=== PATIENT | male | born 1980 | race Caucasian/White ===

== ENCOUNTER 2021-10-27 20:57 | Emergency (ER) | payer MEDICAID, SELFPAY ==
[2021-10-27 21:06] VITALS: BP 135/97; PULSE 86; RESP 20; TEMP 37.3; O2SAT 97
--- NOTE | 2021-10-27 21:24 | US_ITS ---
Final Report Patient: BEVERLEY RAYMOND Facility:?[facility] Patient ID:?[id number] Site Patient ID:?[id number]. Site :?[id number] Study:?US Testicle -10/27/2021 10:49:43 PM Ordering Physician:Hina Sharif Final Report: HISTORY: Left testicular pain TECHNIQUE: Duplex/color Doppler ultrasound evaluation of the scrotum was performed. COMPARISON: None. FINDINGS: The right testis measures 4.6 x 3.7 x 3.6 cm. The right testis and epididymis are normal in size, configuration, and echogenicity. There is no evidence of intra- or extratesticular mass. Small volume of mildly complex appearing fluid in the right hemiscrotum. The left testis measures 5.4 x 3.1 x 4.7 cm. The left testis and epididymis are normal in size, configuration, and echogenicity. There is no evidence of intra- or extratesticular mass. Small to moderate volume of mildly complex appearing fluid in the left hemiscrotum. Color Doppler flow is demonstrated within both testes and epididymides. Normal- appearing arterial and venous waveforms are observed bilaterally. IMPRESSION: 1. Testicles are symmetric in size and blood flow. Epididymal heads appear similar vascularity. 2. Small volume of mildly complex fluid in the right hemiscrotum and small to moderate volume abnormally complex fluid in the left hemiscrotum. Appearance is favored to represent hydrocele, appearance would be atypical for hematoma. Infection is possible though less likely in the absence of evidence of orchitis or epididymitis. Dictated by Pasha Shen MD @ 10/27/2021 11:24:03 PM (Electronic Signature)
--- NOTE | 2021-10-27 21:40 | ED.MALEGU ---
HPI - Male Genitourinary General Time Seen by Provider: 21:40 Chief complaint: Unspecified Complaint, Adult Stated complaint: Testicular pain and severe anxiety Time Seen by Provider: 10/27/21 21:21 History of Present Illness HPI Narrative: Patient is a 41-year-old gentleman comes in today with left-sided testicular pain. Pain is in the posterior testicle. He has no urinary discharge or dysuria. He has had no abdominal pain no fevers no chills no night sweats. He has had no similar symptoms in no recent major change in sex partners. Patient admits to severe anxiety as well. Related Data Home Medications Medication Instructions Recorded Confirmed No Known Home Medications 10/27/21 10/27/21 Allergies Allergy/AdvReac Type Severity Reaction Status Date / Time No Known Drug Allergies Allergy Verified 10/27/21 21:12 Review of Systems Status of ROS: Reports: 10 or more systems reviewed and unremarkable except as noted in History and below [facility] Medical History (Updated 10/27/21 @ 23:19 by Kole Espitia MD) No significant past medical history Surgical History (Updated 10/27/21 @ 21:50 by Michelle Irby RN) No significant past surgical history Social History Smoking Status: Current every day smoker What tobacco products do you use: cigarettes Do you use any of these nicotine containing products: None Second hand tobacco smoke exposure: Yes How often do you have a drink containing alcohol: 2-3 times a week How often do you have six or more drinks on one occasion: Weekly AUDIT-C Alcohol total score: 6 Non-prescribed substance use: denies use service: No Exam Narrative: Exam Narrative: EXAM GENERAL: Patient appears comfortable and well. EYES: No scleral icterus. ENT: Tympanic membranes and oropharynx normal. THYROID: no thyroid nodules or thyromegaly. LYMPH: No supraclavicular or cervical lymphadenopathy. SKIN: Visible skin seen during exam normal or with benign process only. EXT: No dependent lower extremity pedal edema. HEART: Regular rate and rhythm with no murmurs, rubs, or gallops. LUNGS: Clear to auscultation bilaterally with no crackles or wheezes. ABD: Soft, non tender, non distended. Genitourinary: Patient is a normal circumcised male with normal testicular exam. No pain to palpation no swelling noted. PSYCH: Good eye contact, speech is not pressured. Const: Vital Signs, click to edit/add: Vital Signs - 24 hr 10/27/21 21:06 Temperature 99.1 F Pulse Rate [Right Pulse Oximeter] 86 Respiratory Rate 20 Blood Pressure [Le ft Upper Arm] 135/97 H Pulse Oximetry 97 Course Course Hospital Course: Ultrasound of the scrotum shows evidence of a mild hydrocele. Good blood flow noted no evidence of orchitis or epididymitis. Reevaluation(s) Reevaluation #1: He patient feeling better. He is complaining of severe anxiety as well. Vital Signs Vital signs: Initial Vital Signs Temperature 99.1 F 10/27/21 21:06 Temperature Source Temporal Artery Scan 10/27/21 21:06 Pulse Rate 86 10/27/21 21:06 Pulse Rhythm 10/27/21 21:06 Pulse Strength 3+ Normal 10/27/21 21:06 Respiratory Rate 20 10/27/21 21:06 Blood Pressure 135/97 H 10/27/21 21:06 Blood Pressure Mean 109 10/27/21 21:06 Blood Pressure Position Sitting 10/27/21 21:06 Pulse Oximetry 97 10/27/21 21:06 Oxygen Delivery Method 10/27/21 21:06 Vital Signs Temperature 99.1 F 10/27/21 21:06 Pulse Rate 86 10/27/21 21:06 Respiratory Rate 20 10/27/21 21:06 Blood Pressure 135/97 H 10/27/21 21:06 Pulse Oximetry 97 10/27/21 21:06 Temperature 99.1 F 10/27/21 21:06 Pulse Rate 86 10/27/21 21:06 Respiratory Rate 20 10/27/21 21:06 Blood Pressure 135/97 H 10/27/21 21:06 Pulse Oximetry 97 10/27/21 21:06 Discharge Plan Discharge Clinical Impression: Chronic hydrocele Patient Disposition: Home, Self-Care Condition: Stable Instructions: Hydrocele (ED) Activity Level: No Restrictions Discharge Diet: Regular Prescriptions: No Action No Known Home Medications 0RF Follow Up/Referrals: Provider,Not a Local [Primary Care Provider] - Stand Alone Forms: [employer] Info Instructions
--- NOTE | 2021-10-27 23:08 | ED.NURSE ---
Patient came out of room requesting help with anxiety. Walked him back to room and asked more questions. He reports wanting a medication though unsure which may help. Told patient that MD will speak with him about this and MD updated as well.
[2021-10-27 23:48] LABS: Chlamydia DNA Amplified* NOT DETECTED (No Detected); GC DNA Amplified* NOT DETECTED (No Detected)
== END 2021-10-27 23:44 | disposition home or self-care (01) ==
PROVIDERS: Emergency Provider Internal Medicine
DX: N43.3 Hydrocele, unspecified (principal)
CPT/HCPCS: 76870; 87491; 87591; 93976; 99283

== ENCOUNTER 2022-11-06 00:29 | Emergency (ER) | payer MEDICAID, SELFPAY ==
[2022-11-06 00:35] VITALS: BP 145/98; PULSE 67; RESP 16; TEMP 37.1; O2SAT 97
--- NOTE | 2022-11-06 00:53 | ED.EYEPROB ---
HPI - Eye Problem General Chief complaint: Eye Problems Stated complaint: has something in his left eye Time Seen by Provider: 11/06/22 00:33 History of Present Illness HPI Narrative: Patient presents with 6 hour history of a josé of metal in his left. The metal is clearly visible in the inferior aspect of the cornea. Patient has normal visual acuity. He has no chronic medical issues and is up-to-date on his tetanus shot. He otherwise feels well has no major complaints or concerns minimal old tearing. Patient has no redness no warmth no para ocular findings. Patient is otherwise feeling well. He just has a significant foreign body sensation. Related Data Patient tetanus UTD: Yes Home Medications Medication Instructions Recorded Confirmed No Known Home Medications 10/27/21 11/06/22 Allergies Allergy/AdvReac Type Severity Reaction Status Date / Time No Known Drug Allergies Allergy Verified 11/06/22 00:35 [facility] Medical History No significant past medical history Surgical History No significant past surgical history Social History Smoking Status: Current every day smoker What tobacco products do you use: cigarettes Do you use any of these nicotine containing products: None Second hand tobacco smoke exposure: Yes How often do you have a drink containing alcohol: 2-3 times a week How often do you have six or more drinks on one occasion: Weekly AUDIT-C Alcohol total score: 6 Non-prescribed substance use: denies use service: No Exam Narrative: Exam Narrative: EXAM GENERAL: Patient appears comfortable and well. EYES: No scleral icterus. ENT: Left eye shows normal sclera with a foreign body in the inferior aspect of the cornea. THYROID: no thyroid nodules or thyromegaly. LYMPH: No supraclavicular or cervical lymphadenopathy. SKIN: Visible skin seen during exam normal or with benign process only. PSYCH: Good eye contact, speech is not pressured. Const: Vital Signs, click to edit/add: Vital Signs - 24 hr 11/06/22 00:35 Temperature 98.8 F Pulse Rate [Pulse Oximeter] 67 Respiratory Rate 16 Blood Pressure [Ri ght Upper Arm] 145/98 H Pulse Oximetry 97 Oxygen Delivery Me thod Room Air Course Course Hospital Course: I did place tetracaine drops in left eye with resolution of his symptoms. I then attempted to use a swab to remove the foreign body material this was unsuccessful. Was able to remove the foreign body with a ocular drill using normal sterile technique. Vital Signs Vital signs: Initial Vital Signs Temperature 98.8 F 11/06/22 00:35 Temperature Source Temporal Artery Scan 11/06/22 00:35 Pulse Rate 67 11/06/22 00:35 Pulse Strength 3+ Normal 11/06/22 00:35 Respiratory Rate 16 11/06/22 00:35 Blood Pressure 145/98 H 11/06/22 00:35 Blood Pressure Mean 113 H 11/06/22 00:35 Pulse Oximetry 97 11/06/22 00:35 Oxygen Delivery Method Room Air 11/06/22 00:35 Vital Signs Temperature 98.8 F 11/06/22 00:35 Pulse Rate 67 11/06/22 00:35 Respiratory Rate 16 11/06/22 00:35 Blood Pressure 145/98 H 11/06/22 00:35 Pulse Oximetry 97 11/06/22 00:35 Oxygen Delivery Method Room Air 11/06/22 00:35 Temperature 98.8 F 11/06/22 00:35 Pulse Rate 67 11/06/22 00:35 Respiratory Rate 16 11/06/22 00:35 Blood Pressure 145/98 H 11/06/22 00:35 Pulse Oximetry 97 11/06/22 00:35 Oxygen Delivery Method Room Air 11/06/22 00:35 MDM - Eye Problem MDM Narrative Medical decision making narrative: Patient presents with a foreign body in his left eye. This was anesthetized and the foreign body was removed. Patient tolerated procedure well and will follow-up with his eye doctor on a p.r.n. basis. Differential Diagnosis Differential diagnosis: Likely corneal abrasion, conjunctivitis, acute iritis, hyphema, periorbital cellulitis, subconjunctival hemorrhage and ruptured globe Discharge Plan Discharge Clinical Impression: Acute foreign body of left cornea Patient Disposition: Home, Self-Care Condition: Stable Instructions: Eye Foreign Body (ED) Additional Instructions: Hydrating eyedrops as needed Follow-up with [facility] if symptoms return in the am. Activity Level: Activity as Tolerated Discharge Diet: Regular Prescriptions: No Action No Known Home Medications Follow Up/Referrals: Provider,Not a Local [Primary Care Provider] - Stand Alone Forms: [employer] Info Instructions
[2022-11-06] MEDS: TETRACAINE 0.5% OPHTH 1 DROP EYE-LEFT (01:09)
== END 2022-11-06 01:10 | disposition home or self-care (01) ==
LOC: ED 00:58
PROVIDERS: Emergency Provider Internal Medicine
DX: T15.02XA Foreign body in cornea, left eye, initial encounter (principal)
CPT/HCPCS: 65220; 99283